=== PATIENT | male | born 1990 | race Caucasian/White ===

== ENCOUNTER 2022-04-16 12:14 | Emergency (ER) | payer OTHER, BC, SELFPAY ==
[2022-04-16 12:15] VITALS: BP 162/88; PULSE 63; RESP 14; TEMP 36.4; O2SAT 100; BMI 32.8
--- NOTE | 2022-04-16 15:35 | EX.ED.GENINJ ---
HPI <PREM Calderon - Last Filed: 04/16/22 15:46> History of Present Illness Chief Complaint: Laceration Narrative Narrative: Patient is a 31-year-old male with no significant medical history presents to the emergency department with a laceration to the right hand. 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 Patient states he was using a drill bit when it slipped, striking the palmar aspect of his right hand. Patient states that this occurred 5 PM yesterday. He did use some new skin however it broke open. He is here now for reevaluation. His last tetanus vaccination was 3 years ago Tetanus Immunization: <5 years PFSH <PREM Calderon - Last Filed: 04/16/22 15:46> [facility] Medical History no medical history Home Medications cefadroxil 500 mg capsule 500 mg PO BID 7 days #14 caps 04/16/22 [Rx Last Taken Unknown] Allergy/AdvReac Type Severity Reaction Status Date / Time amoxicillin Allergy Hives Verified 04/16/22 12:17 Family History no significant family his Surgical History no surgical history Social History Smoking Status: Never smoker ROS <PREM Calderon - Last Filed: 04/16/22 15:46> ROS ED ROS Narrative Constitutional: Negative for fever, chills, weight loss, weakness Eyes: Negative for vision loss, vision change, double vision ENT: Negative for any sore throat, ear pain, congestion Cardiovascular: Negative for any chest pain, tightness, palpitations Respiratory: Negative for any cough, sputum production, hemoptysis, dyspnea, dyspnea on exertion, orthopnea Gastrointestinal: Negative for any abdominal pain, nausea, vomiting, diarrhea, constipation, blood in stool, blood in vomit : Negative for any urinary frequency, dysuria, retention, blood in urine Muscle skeletal: Negative for any muscle joint pain, stiffness, myalgias, arthralgias, neck pain, back pain. Positive right hand pain Neurological: Negative for any headache, syncope, numbness or tingling, dizziness Skin: Negative for any rashes, lumps, itching, abrasions. Positive for laceration of the right hand Psychiatric: Negative for any depression, anxiety, stress, suicidal ideation, homicidal ideation Hematologic: Negative for any easy bruising, excessive bruising, easy bleeding Allergies: Negative for any eczema, hives, rash EXAM <PREM Calderon - Last Filed: 04/16/22 15:46> Physical Exam Narrative Exam Narrative: Vital signs reviewed. Extremities: No peripheral edema, no signs of gross trauma or deformity. Active full range of motion of all extremities. Patient is full range of motion of the right hand. Is able to fully extend, flex the fingers of the right hand. +2 radial pulse. Patient does have a 3 cm vertical laceration on the palmar aspect in between the second and third digit. There is no tendon involvement. No foreign body noted. Neuro: Cranial nerves II through XII intact, no focal neurological deficits. Skin: Clean dry and intact with no rash, purpura, petechiae, vesicles or pustules. Backs/flank: No CVA tenderness, no midline spinal tenderness, no deformity. Psych: Normal mood and affect. No SI, HI or acute psychosis. Const Vital Signs: 04/16/22 12:15 Temperature 97.5 F L Temperature Source Temporal Pulse Rate 63 Respiratory Rate 14 Blood Pressure 162/88 H Blood Pressure Mean 112 Pulse Ox 100 Oxygen Delivery Method Room Air <Dr. David Montana MD - Last Filed: 04/16/22 17:15> Physical Exam Const Vital Signs: 04/16/22 12:15 Temperature 97.5 F L Temperature Source Temporal Pulse Rate 63 Respiratory Rate 14 Blood Pressure 162/88 H Blood Pressure Mean 112 Pulse Ox 100 Oxygen Delivery Method Room Air PROC <PREM Calderon - Last Filed: 04/16/22 15:46> Procedures Lacerations Hand laceration: Depth: Skin Shape: Linear Irrigated (ml): 500 Number of Sutures/Bandar: 5 Suture Information: Ethilon, Simple and 4-0 Comment: Sterile gloves, sterile drapes were used. MDM <PREM Calderon - Last Filed: 04/16/22 15:46> [facility] Differential Diagnosis Differential Diagnosis: Tendon laceration Why less likely: Movement to all fingers Treatment and Re-Evaluation Narrative: Patient appears well, patient appears nontoxic, vital signs are stable. Patient presents to the emergency department with complaints of a laceration to the right hand that occurred at 5 PM yesterday. This is a Workmen's Comp. injury. Patient's physical examination consistent with a simple laceration. Considered a x-ray of the right hand however the patient has minimal pain, patient has full range of motion of the fingers, hand. There is no neurological focal deficit. I copiously irrigated the wound with 500 cc of normal saline. Mikayla. I anesthetized the area with lidocaine with epi. I did place 5 simple ruptured sutures of 4-0 Ethilon. Patient tolerated well. The edges approximated nicely. The patient tetanus vaccination was up-to-date. Patient was placed on Duricef twice a day for 5 days. All proper paperwork filled out. He was given strict return precaution to return for any signs or symptoms of redness, infectious process. Patient stable for discharge. <Dr. David Montana MD - Last Filed: 04/16/22 17:15> MDM MDM Narrative Medical decision making narrative: Seen and evaluated independently and in conjunction with nurse practitioner. Agree with notes above unless documented otherwise. Delayed presentation laceration to his right hand in addition to a puncture wound, this caused by a drill bit. Full-thickness laceration 3 cm, subcutaneous structures besides fat not visible. Full range of motion no bony tenderness. Neurovascular intact distally all fingertips. I agree with repairing his laceration and providing antibiotics given the puncture, see the procedure note. Discharge Plan Triage Chief Complaint: Laceration ED Midlevel Provider: Seth Moran ED Provider: David Montana Dx/Rx/DC Orders Clinical Impression: Hand laceration Instructions: ED Laceration Extremity, ED Laceration Hand with ... Prescriptions: New cefadroxil 500 mg capsule 500 mg PO BID 7 Days Qty: 14 0RF Primary Care Provider: Phani Sutton Referrals: Clinic,NOW [Non-Staff] - Activity Restrictions/Additional Instructions: Follow-up with the follow-up clinic. Take antibiotics until finished. Keep the area clean and dry. Return for any signs of redness or signs of infection Disposition Disposition: Home, Self Care Discharge Date/Time: 04/16/22 16:06
== END 2022-04-16 16:06 | disposition home or self-care (01) ==
PROVIDERS: Emergency Provider Emergency Medicine; PCP Family Medicine; Visit Provider Emergency Medicine
DX: S61.411A Laceration without foreign body of right hand, initial encounter (principal); W29.8XXA Contact with other powered hand tools and household machinery, initial encounter; Y99.0 Civilian activity done for income or pay
CPT/HCPCS: 12002; 99283

== ENCOUNTER 2023-12-20 08:55 | Day surgery (SDC) | payer BC, SELFPAY ==
[2023-12-20 08:55] VITALS: BP 156/88; PULSE 83; RESP 18; TEMP 36.8; O2SAT 98; BMI 41.1
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
[2023-12-20] MEDS: Lidocaine 1% (20 ml mdv) 20 ML Vial INFILT (09:17)
--- NOTE | 2023-12-20 09:25 | RAD_ITS ---
STUDY: X-RAY - LEFT HAND, ATTENTION LEFT THUMB. REASON FOR EXAM: Male, 32 years old. Injury/FB -- thumb TECHNIQUE: 3 view(s) of the finger were obtained. COMPARISON: None. FINDINGS: Normal metacarpal head. Normal metacarpophalangeal joint. Normal proximal phalanx. Normal distal phalanx. Normal distal interphalangeal joint. No radiopaque foreign body is seen. RAD/Finger(s) Min 2 Views IMPRESSION: No acute abnormality is seen. Electronically Signed: Justin Pichardo MD at 9:44 EST ,
[2023-12-20 10:55] VITALS: BP 148/77; PULSE 76; RESP 18; O2SAT 99
--- NOTE | 2023-12-20 11:37 | ED.RN ---
THIS RN CALLS DOWN TO PHARMACY FOR ATB WHEN TIME HAD REACHED 33 MINS. PHARMACY TO SEND
[2023-12-20] MEDS: Cefazolin 1 GM/50 ML BAG IV (11:43)
[2023-12-20 12:00] VITALS: BP 133/75; PULSE 84; RESP 16; O2SAT 99
[2023-12-20 13:50] VITALS: BP 130/77; PULSE 71; RESP 18; TEMP 36.9; O2SAT 99
--- NOTE | 2023-12-20 16:00 | FORE_PTH ---
PATIENT: HILTON LEES LOC: [facility] [place] U#:[id number] AGE/SX: 32/M ROOM: RE12/20/[address]: Dr. Rick Calderon MD : 1990 BED: DIS: 12/20/2023 SPEC #: [id number] RECD: 12/21/23 10:59 STATUS: BRIAN RESamantha #: [id number] KWAME: 12/20/23 16:[address]: Rick Calderon DEPT: SURGICAL PATHOLOGY RECD BY: Marifer Olivia ENTERED: 12/21/23 11:50 SP TYPE: FOREIGN B OT DR: Dr. Phani Sutton MD Tissues: FOREIGN BODY Procedures: Surgery Specimen Level I HEADER OPERATION: Arthrotomy and irrigation with complex closure to left thumb PRE-OP DIAGNOSIS: Laceration of finger of left hand with foreign body without damage to nail, penetrating traumatic injury of hand TISSUE SUBMITTED: Foreign body left thumb GROSS DIAGNOSIS A piece of foreign body (gross only). SJ.mr 12/21/2023 MICROSCOPIC DESCRIPTION Slides are reviewed. GROSS DESCRIPTION Received in fixative is one container labeled with the patient's name and designated Foreign body left thumb. The specimen consists of an elongated piece of black foreign body measuring 0.9 x 0.2 x 0.1cm. The specimen is for gross identification only. 12/21/2023 CPT:90772
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
[2023-12-20 16:32] VITALS: BP 122/64; BP 124/63; BP 125/57; BP 125/61; BP 127/56; BP 127/62; BP 128/63; BP 130/76; BP 131/71; BP 132/60; BP 135/69; O2SAT 100; O2SAT 97; O2SAT 98; O2SAT 99
[2023-12-20] MEDS: Lidocaine 1% /Epi 1:100 (20ml) 20 ML Vial (16:47)
[2023-12-20] MEDS: Bupiv/Epi 0.25% 30 ML Vial (16:47)
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
== END 2023-12-20 18:29 | disposition home or self-care (01) ==
LOC: ED 11:26 → SDC 12:31
PROVIDERS: Emergency Provider Emergency Medicine; PCP Family Medicine; Visit Provider Surgery Plastic and Reconstructive Surgery
PROC: (CPT 13132; principal; 2023-12-20 11:50)
DX: S61.022A Laceration with foreign body of left thumb without damage to nail, initial encounter (principal); W45.8XXA Other foreign body or object entering through skin, initial encounter; Y93.89 Activity, other specified; S61.442A Puncture wound with foreign body of left hand, initial encounter; S61.042A Puncture wound with foreign body of left thumb without damage to nail, initial encounter
CPT/HCPCS: 13132; 73140; 88300; 99285; J7040